=== PATIENT | male | born 1935 | race Caucasian/White ===

== ENCOUNTER → 2017-04-15 | Outpatient (CLI) | payer OTHER | LOC: BRMIMAGING 12:00 | PROVIDERS: ATTEND Family Medicine | DX: R05 Cough (principal); R09.89 Other specified symptoms and signs involving the circulatory and respiratory systems | CPT/HCPCS: 71020-PO ==

== ENCOUNTER → 2017-07-29 | Outpatient (CLI) | payer OTHER | LOC: BRMIMAGING 12:36 | PROVIDERS: ATTEND Family Medicine | DX: R05 Cough (principal) | CPT/HCPCS: 71046-PO ==

== ENCOUNTER → 2017-08-04 | Outpatient (CLI) | payer OTHER ==
[~2017-08-04] MED LIST: IOPAMIDOL (ISOVUE 370) 100 ML BTL IV ONE
== END ==
LOC: CIMAGING 09:31
PROVIDERS: ATTEND Surgery
DX: I77.810 Thoracic aortic ectasia (principal); J40 Bronchitis, not specified as acute or chronic; N28.1 Cyst of kidney, acquired; K83.9 Disease of biliary tract, unspecified; M89.8X8 Other specified disorders of bone, other site; Z87.891 Personal history of nicotine dependence
CPT/HCPCS: 71275; Q9967